=== PATIENT | male | born 1940 | race Caucasian/White ===

== ENCOUNTER 2018-03-22 16:50 | Emergency (ER) | payer MEDICARE ==
[2018-03-22 17:28] LABS: ADD MAN DIFF? NO
[2018-03-22 17:31] LABS: BASO # 0.1 x10^3/uL (0.0-0.2); BASO % 1 % (0-3); EOS # 0.1 x10^3/uL (0.0-0.7); EOS % 1 % (0-3); HEMATOCRIT 41.5 % (39.0-53.0); HEMOGLOBIN 14.6 g/dL (13.0-17.5); LYMPH # 1.3 x10^3/uL (1.0-4.8); LYMPH % 16 % (24-48); MEAN CORPUSCULAR HEMOGLOBIN 33 pg (25-35); MEAN CORPUSCULAR HGB CONC 35 g/dL (31-37); MEAN CORPUSCULAR VOLUME 93 fL (79-100); MONO # 0.8 x10^3/uL (0.0-1.1); MONO % 10 % (0-9); NEUT # 6.1 x10^3uL (1.8-7.7); NEUT % 73 % (31-73); PLATELET COUNT 286 x10^3/uL (140-400); RED BLOOD COUNT 4.47 x10^6/uL (4.30-5.70); RED CELL DISTRIBUTION WIDTH 15.1 % (11.5-14.5); WHITE BLOOD COUNT 8.4 x10^3/uL (4.0-11.0)
[2018-03-22] MEDS: IV NORMAL SALINE 1000ML BAG 1,000 ML IV (17:31)
[2018-03-22 17:43] LABS: ANION GAP 8 (6-14); BLOOD UREA NITROGEN 20 mg/dL (8-26); CALCIUM 9.1 mg/dL (8.5-10.1); CARBON DIOXIDE 27 mmol/L (21-32); CHLORIDE 106 mmol/L (98-107); GFR 72.6; GLUCOSE 118 mg/dL (70-99); POTASSIUM 3.1 mmol/L (3.5-5.1); SODIUM 141 mmol/L (136-145)
[2018-03-22] MEDS ORDERED: CONTRAST GIVEN MC (17:45)
[2018-03-22] MEDS: DIPHTH,PERTUSS(ACELL),TET TOX 0.5 ML DISP.SYRIN. VAX IM (17:49)
[2018-03-22 18:00] LABS: TROPONINI < 0.017 ng/mL (0.000-0.055)
[2018-03-22] MEDS: IOHEXOL 300 MG/ML 100ML VIAL. IV (18:01)
== END 2018-03-22 19:07 | disposition home or self-care (01) ==
LOC: ER 16:50
DX: S22.32XA Fracture of one rib, left side, initial encounter for closed fracture (principal); S40.811A Abrasion of right upper arm, initial encounter; E78.00 Pure hypercholesterolemia, unspecified; K57.30 Diverticulosis of large intestine without perforation or abscess without bleeding; N28.1 Cyst of kidney, acquired; N40.0 Benign prostatic hyperplasia without lower urinary tract symptoms; I51.7 Cardiomegaly; I10 Essential (primary) hypertension; I73.9 Peripheral vascular disease, unspecified; W11.XXXA Fall on and from ladder, initial encounter; Y93.89 Activity, other specified; Y99.0 Civilian activity done for income or pay; Y92.69 Other specified industrial and construction area as the place of occurrence of the external cause
CPT/HCPCS: 36415; 70450; 71260; 72125; 74177; 80048; 84484; 85025; 90471; 90715; 93005; 99285-25; J7030; Q9967